=== PATIENT | female | born 1990 ===

== ENCOUNTER 2020-06-22 06:20 | Emergency (ER) ==
[2020-06-22] MEDS ORDERED: Acetaminophen 500 MG TAB ONE (06:54)
[2020-06-22 07:42] LABS: #Basophils 0.1 thou/uL (0.0-0.2); #Lymphocytes 1.1 thou/uL (1.20-3.40); #Monocytes 0.6 thou/uL (0.11-0.59); %Basophils 0.6 % (0.0-1.0); %Eosinophils 0.1 % (0.0-10.0); %Lymphocytes 8.2 % (21.0-51.0); %Monocytes 4.5 % (0.0-10.0); %Neutrophils 86.7 % (42.0-75.0); Hemoglobin 12.5 g/dL (12.0-16.0); Mean Corpuscular Volume 94.1 fL (78.0-98.0); Platelet Count 360 thou/uL (130-400); RBC Distribution Width 10.9 % (11.5-14.5); White Blood Cell (WBC) Count 13.8 thou/uL (4.8-10.8)
[2020-06-22 07:44] LABS: BHCG - Serum Negative (NEGATIVE); Pregs Control Bar Appear? YES (CONTROL BAR)
[2020-06-22 07:49] LABS: INR-International Normal Ratio 1.1; PTT 28.4 sec (22.9-36.1)
[2020-06-22 07:58] LABS: ALT (SGPT) 26 U/L (8-55); AST (SGOT) 24 U/L (5-34); Albumin 4.3 g/dL (3.5-5.0); Alkaline Phosphatase 74 U/L (40-110); Anion Gap 15 mmol/L (10-20); BUN (Urea Nitrogen) 11 mg/dL (7.0-18.7); Bilirubin, Total 0.4 mg/dL (0.2-1.2); Calc. Creatinine Clearance 0 mL/min (70-130); Calcium 8.7 mg/dL (7.8-10.44); Carbon Dioxide 21 mmol/L (22-29); Chloride 105 mmol/L (98-107); Globulin 3.3 g/dL (2.4-3.5); Glucose 116 mg/dL (70-105); Lipase 18 U/L (8-78); Potassium 4.1 mmol/L (3.5-5.1); Protein, Total 7.6 g/dL (6.0-8.3); Sodium 137 mmol/L (136-145)
[2020-06-22 09:00] LABS: Bilirubin Negative (Negative); Blood, Urine Negative (Negative); Clarity Clear (Clear); Glucose, Urine (Dipstick) Negative (Negative); Ketone, Urine Negative (Negative); Leukocyte Small (Negative); Nitrite Negative (Negative); Protein, Urine (Dipstick) Negative (Neg-Trace); Urobilinogen 0.2 mg/dL (Less than 2); pH, Urine 5.5 (5.0-9.0)
[2020-06-22] MEDS ORDERED: Iopamidol 370 76% 100 ML VIAL ONE (09:00)
[2020-06-22 09:01] LABS: Specific Gravity, Urine Less/Equal 1.005 (1.005-1.030)
[2020-06-22 09:02] LABS: RBC/HPF 0-3 HPF (0-3); Squamous Epithelial 21-50 HPF (0-3)
[2020-06-22 09:03] LABS: Bacteria/HPF Rare-Few HPF (None Seen)
--- NOTE | 2020-06-22 09:11 | CT ---
CT BRAIN: Date: 06/22/2020 PROVIDED CLINICAL HISTORY: Trauma. FINDINGS: The ventricular system appears normal in size and morphology. There is no evidence for intracranial h emorrhage or mass effect. The extracranial soft tissues and osseous structures demonstrate an unremar kable CT appearance. IMPRESSION: No evidence for intracranial hemorrhage or mass effect. POS: ÁNGEL
--- NOTE | 2020-06-22 09:14 | CT ---
CT FACIAL BONES: Date: 06/22/2020 PROVIDED CLINICAL HISTORY: Trauma. FINDINGS: There is no evidence for fracture. The paranasal sinuses are free of significant opacity. The globes and other orbital contents appear normal. IMPRESSION: No evidence for fracture. POS: ÁNGEL
--- NOTE | 2020-06-22 09:14 | CT ---
CT CERVICAL SPINE: Date: 06/22/2020 PROVIDED CLINICAL HISTORY: Trauma. FINDINGS: No evidence for fracture or traumatic subluxation. No prevertebral soft tissue swelling apparent. The visualized lung apices appear clear. IMPRESSION: No evidence for fracture or traumatic subluxation. POS: ÁNGEL
--- NOTE | 2020-06-22 09:23 | CT ---
CT ABDOMEN AND PELVIS WITH IV CONTRAST LIMITED CT LUMBAR SPINE: Date: 06/22/2020 PROVIDED CLINICAL HISTORY: Trauma. FINDINGS: The visualized lung bases are free of significant opacity. Evaluation is widely limited by patient respiratory motion. The solid abdominal organs demonstrate no evidence for traumatic abnormality. No bowel dilatation, in flammatory fat stranding, free fluid, or free air apparent. IUD noted centrally within the uterus. The osseous structures demonstrate no evidence for an acute abnormality. Sagittal and coronal lumbar spine reconstructions demonstrate normal spinal alignment and maintenance of vertebral body heights. IMPRESSION: 1. No evidence for traumatic abnormality involving abdomen and pelvis. 2. No evidence for acute lumbar spine injury. POS: ÁNGEL
== END 2020-06-22 09:30 | disposition home or self-care (01) ==
LOC: NAV ERS 06:20
DX: S40.021A Contusion of right upper arm, initial encounter (principal); R10.11 Right upper quadrant pain; Y04.8XXA Assault by other bodily force, initial encounter
CPT/HCPCS: 70450; 70486; 72125; 74177; 80053; 81003; 81015; 83690; 84703; 85025; 85610; 85730; 94760; Q9967